=== PATIENT | female | born 1990 | race Caucasian/White ===

== ENCOUNTER 2018-07-16 09:45 | Inpatient (IN) | payer OTHER ==
[~2018-07-16] VITALS: Ht 157.5 cm; Wt 72.6 kg
[2018-07-16] MEDS ORDERED: HUMLOG (11:57)
[2018-07-16] MEDS ORDERED: SYNTHROID175 MCG PO (12:05)
== END 2018-07-21 10:09 | disposition home or self-care, planned readmission (81) | DRG 743 ==
LOC: OB/GYN 07-19 06:05 → O/R 07-19 06:05 → SURH 07-19 07:00 → OB/GYN 07-19 10:58
PROVIDERS: ADMIT Obstetrics & Gynecology
PROC: 0DBU0ZZ Excision of Omentum, Open Approach (ICD-10-PCS; 2018-07-19)
PROC: 0WJG0ZZ Inspection of Peritoneal Cavity, Open Approach (ICD-10-PCS; 2018-07-19)
PROC: 3E1M38Z Irrigation of Peritoneal Cavity using Irrigating Substance, Percutaneous Approach (ICD-10-PCS; 2018-07-19)
PROC: 0UB90ZZ Excision of Uterus, Open Approach (ICD-10-PCS; principal; 2018-07-19 07:00)
DX: D25.1 Intramural leiomyoma of uterus (principal); N83.291 Other ovarian cyst, right side; E11.9 Type 2 diabetes mellitus without complications; E03.8 Other specified hypothyroidism; Z96.41 Presence of insulin pump (external) (internal)